=== PATIENT | female | born 1945 | race Caucasian/White ===

== ENCOUNTER 2017-09-02 21:16 | Emergency (ER) | payer MEDICARE, MEDICAID ==
[~2017-09-02] VITALS: Ht 149.9 cm; Wt 54.4 kg
[~2017-09-02 21:16] MED LIST: LEVO25TA58; LIP20 PO
[2017-09-02 21:28] VITALS: BP_SYST 135
[2017-09-02] MEDS ORDERED: LIP40 PO (21:47)
[2017-09-02] MEDS ORDERED: LEVO25TA58 PO (21:47)
[2017-09-02] MEDS ORDERED: traMADol HCL HCL 50 MG TABLET (ULTRAM) PO ONE (22:15)
[2017-09-02 23:00] VITALS: BP_SYST 132
== END 2017-09-02 23:00 | disposition home or self-care (01) ==
LOC: SED 21:16
DX: S82.831A Other fracture of upper and lower end of right fibula, initial encounter for closed fracture (principal); E03.9 Hypothyroidism, unspecified; E78.00 Pure hypercholesterolemia, unspecified; R03.0 Elevated blood-pressure reading, without diagnosis of hypertension; Z88.6 Allergy status to analgesic agent; W01.0XXA Fall on same level from slipping, tripping and stumbling without subsequent striking against object, initial encounter; Y93.H2 Activity, gardening and landscaping; Y92.096 Garden or yard of other non-institutional residence as the place of occurrence of the external cause; Y99.8 Other external cause status
CPT/HCPCS: 99284